=== PATIENT | male | born 1935 | race Caucasian/White ===

== ENCOUNTER → 2019-10-27 08:31 | Outpatient (CLI) | payer MEDICARE ==
[~2019-10-27 08:31] MED LIST: BAYER CHEWABLE81 MG PO; BENADRYL25 MG PO; BISOPROLOL FUMAR5 MG; FLORANEX / LACT1 TAB PO; NORCO 7.5-3251 EACH PO; NORVASC10 MG PO; OMEPRAZOLE20 M1 PO; PLAVIX75 MG PO; PRINIVIL10 MG PO; XANAX0.5 MG PO
--- NOTE | 2019-10-29 08:18 | EC ---
PATIENT:GEN PEGUERO DATE OF SERVICE: 10/27/19 SEX: M MEDICAL RECORD: [id number] DATE OF : 37 LOCATION:D[facility] AGE OF PATIENT: 84 ADMISSION DATE: 10/27/19 REFERRING PHYSICIAN: INTERPRETING PHYSICIAN: BRE RODAS MD ECHOCARDIOGRAM REPORT ECHO CHARGES 4 ECHO COMPLETE Date: 10/27/19 CLINICAL DIAGNOSIS: PRE OP ECHOCARDIOGRAPHIC MEASUREMENTS (adult normal given) AC root (d.<3.7cm) 2.5 cm LV Septum d (<1.2 cm> 0.9 cm Valve Excursion 1.2 cm LV Septum (systole) 2.0 cm Left Atria (s.<4.0cm> 3.7 cm LVPW d(<1.2cm) 1.4 cm RV (d.<2.3cm) 3.4 cm LVPW (sytole) 1.3 cm LV diastole(<5.6CM) 4.7 cm MV E-F(>70mm/sec) cm LV systole 2.6 cm LVOT Diameter 1.9 cm MV exc.(>10mm) cm Est.ejection fraction (50-75%) % DOPPLER: LVIT cm/sec A 126 cm/sec E 106 cm/sec LA cm/sec RVSP 49.2 mmHg LVOT 99 cm/sec AOP1/2T m/s Asc. Ao 266 cm/sec RVOT 92 cm/sec RA cm/sec PA 117 cm/sec AV Gradient Peak 28.2 mmHg AV Mean 17.9 mmHg AV Area 1.1 cm MV Gradient Peak 10.7 mmHg MV Mean 4.5 mmHg MV Area cm COMMENTS: Children'S Minister: [facility] Sewage Reticulation Drafting Officer: 3 Dr. Pepper TAPE# PACS Pericardial Effusion N DATE OF SERVICE: Adequate 2D, color-flow imaging, spectral Doppler and M-Mode No LVH. LV internal dimensions are normal. Wall motion is normal. EF is greater than or equal to 55%. Aortic valve is calcified with restriction of leaflet motion. Peak gradient of 28 mmHg putting this in mild range. Left atrium is normal at 3.7 cm. Mitral valve shows no prolapse. Trace MR. Right-sided chambers are grossly normal. Trace TR. ECHOCARDIOGRAM REPORT [id number] GEN PEGUERO TRANSINT:[id number] Voice Confirmation ID: [id number] DOCUMENT ID: [id number] BRE RODAS MD at 0818 CC: [id number] DICTATION DATE: 10/28/19 1245 MACHINE PACKAGER: 10/28/19 1352 DEP CLI 10/27/19 [id number] [place] [address]
[2019-10-29 12:44] VITALS: BMI 36.6
== END | disposition home or self-care (01) ==
LOC: D.ECHO 08:31
PROVIDERS: ATTEND Internal Medicine Cardiovascular Disease
DX: Z01.818 Encounter for other preprocedural examination (principal)

== ENCOUNTER 2019-10-28 10:45 | Inpatient (IN) | payer MEDICARE ==
--- NOTE | 2019-10-27 11:35 | NUR ---
PANS VS RT. ARM 151/59, LT. 137/56, P.OX 99%, P 64, T 98.5
[2019-10-27 11:40] LABS: HEMATOCRIT 34.8 % (42.0-54.0); HEMOGLOBIN 10.5 g/dL (13.5-17.5); MCH 29.2 pg (26.0-34.0); MCHC 30.2 g/dL (31.0-37.0); MCV 96.9 fL (80.0-100.0); MEAN PLATELET VOLUME 10.5 fL (7.4-10.4); RBC 3.59 10x6/uL (4.20-6.10); RDW 15.4 % (11.5-14.5); WBC 6.2 10x3/uL (4.8-10.8)
[2019-10-27 11:51] LABS: INR 1.01 (0.85-1.17); PROTIME 13.3 SECONDS (11.6-15.0)
[2019-10-27 11:52] LABS: APTT 28.9 SECONDS (22.8-39.4)
[2019-10-27 12:10] LABS: ALBUMIN 3.6 g/dL (3.4-5.0); ANION GAP 9.4 mmol/L (8-16); BILIRUBIN - TOTAL 0.3 mg/dL (0.2-1.3); CALCIUM 8.8 mg/dL (8.5-10.1); CARBON DIOXIDE 27.8 mmol/L (21.0-32.0); CREATININE - SERUM 1.6 mg/dL (0.6-1.3); POTASSIUM - SERUM 4.2 mmol/L (3.5-5.1); PROTEIN - SERUM 7.1 g/dL (6.4-8.2)
[2019-10-27 12:15] LABS: BILIRUBIN NEGATIVE (NEGATIVE); KETONE NEGATIVE (NEGATIVE); NITRITE NEGATIVE (NEGATIVE); UROBILINOGEN NORMAL (NORMAL)
[2019-10-28] VITALS (15 sets, daily range): BP systolic 102–150; BP diastolic 35–67; BMI 36.7; BMI 36.6
[~2019-10-28] VITALS: Ht 180.3 cm; Wt 114.7 kg
--- NOTE | 2019-10-28 16:00 | NUR ---
PTS TONGUE NOTIED TO DEVIATE TO RIGHT, DR ORELLANA NOTIFIED
--- NOTE | 2019-10-28 17:48 | NUR ---
A LINE READING 130S AND CUFF 110S, A LINE PEAKED, DR ORELLANA NOTIFIED AND OK TO GO BY CUFF PRESSURE
--- NOTE | 2019-10-28 19:00 | NUR ---
REPORT RECEIVED FROM OFF GOING NURSE, RECEIVED PT RESTING IN BED WATCHING TV. NO NEEDS VOICED AT THIS TIME. SHIFT ASSESSMENT COMPLETED, SEE FLOWSHEET FOR DETAILS.
[2019-10-29] VITALS (26 sets, daily range): BP systolic 127–166; BP diastolic 48–84; Ht 180.3 cm; Wt 114.7 kg
--- NOTE | 2019-10-29 07:00 | NUR ---
REPORT RECEIVED FROM OFF-GOING NURSE.
--- NOTE | 2019-10-29 07:45 | NUR ---
SHIFT ASSESSMENT COMPLETED. DENIES PAIN. STATES RIGHT NECK AND FACE ARE "NUMB" FEELING. SEE NEURO ASSESSMENT.
--- NOTE | 2019-10-29 09:30 | NUR ---
C/O RIGHT NECK PAIN 07/12. STATES "FEELING IS COMING BACK". MEDICATED WITH TRAMADOL 50MG.
--- NOTE | 2019-10-29 10:00 | NUR ---
STATES PAIN IS "GONE". AT BEDSIDE.
--- NOTE | 2019-10-29 10:45 | NUR ---
RIGHT NECK DEA DRAIN D/C'D. OCCLUSIVE DRESSING APPLIED. 10MLS IN DRAIN. RIGHT RADIAL ART LINE D/C'D. PRESSURE HELD AND OCCLUSIVE DRESSING APPLIED. WARD CATHETER REMOVED. URINAL GIVEN.
--- NOTE | 2019-10-29 14:15 | NUR ---
ASSISTED BACK TO BED WITH HOB AT 30 DEGREES. HAS BEEN OOB SINCE 0600. DENIES PAIN. CVP MONITOR D/C'D. PORT CAPPED.
--- NOTE | 2019-10-29 16:00 | OP ---
PATIENT NAME: GEN PEGUERO MEDICAL RECORD: [id number] :37 LOCATION:D.[facility] D.CV06 ADMISSION DATE:10/28/19 SURGEON: YANELY ORELLANA MD DATE OF OPERATION: 10/28/2019 SURGEON: Yanely Orellana MD PROCEDURE PERFORMED: Right carotid endarterectomy. 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 POSTOPERATIVE DIAGNOSIS: Preocclusive right internal carotid artery. ANESTHESIA: General endotracheal anesthesia. ESTIMATED BLOOD LOSS: 10 cc. SPECIMENS: Plaque. COMPLICATION: None. CONDITION: Stable. DISPOSITION: CV ICU. OPERATIVE FINDINGS: 1. Severe right internal carotid artery plaque with preocclusive lesion, the plaque feathered well distally primary closure. 2. Neurologically intact to CV ICU. OPERATIVE INDICATION: Transient right eye blindness, multiple times, but none since Plavix was started by Dr. Jaquez last week. PROCEDURE IN DETAIL: The patient brought to the operative suite. General anesthesia was obtained, the patient was prepped and draped. An oblique incision made in the right neck. The right common carotid was dissected out. Facial venous branches divided between ligatures and suture ligatures. Ansa was clipped and divided. The patient had a short neck. Retraction of the jaw was necessary. Upward retraction of the hypoglossal nerve with a vessel loop was performed. The external carotid and thyroid branch were dissected out, encircled with the vessel loop. Distal internal carotid artery was dissected out. Heparin was given. Backbleeding of the internal carotid was controlled with a bulldog clamp, inflow with a vascular clamp. Backbleeding of the external carotid thyroid branch controlled with vessel loops. EEG and cerebral oximetry remained normal for 2 minutes and arteriotomy was begun. The common carotid artery was taken out to the region of dense and irregular plaque in the proximal internal carotid into region of normal internal carotid. The plaque was divided. The common carotid eversion endarterectomy of the external carotid was performed. The plaque feathered well distally. Thorough irrigation undertaken and the loose bits of debris were removed, the artery was closed primarily. Flow was restored first to the external carotid and then to the internal carotid. Hemostasis was ensured. Thorough irrigation was undertaken. Protamine was given. The drain was placed through a separate stab wound. Surgicel was used over the wound and then the neck was closed in 3 layers. OPERATIVE REPORT [id number] GEN PEGUERO Dermabond was placed. Anesthesia reversed. The patient neurologically intact, to ICU. TRANSINT:[id number] Voice Confirmation ID: [id number] DOCUMENT ID: [id number] YANELY ORELLANA MD at 1600 CC: MARTIN LLAMAS MD [id number] DICTATION DATE: 10/28/19 1444 SUGAR CANE PLANTER: 10/29/19 0026 ADM IN [address] [place] [address]
--- NOTE | 2019-10-29 16:50 | NUR ---
UP TO CHAIR FOR SUPPER. STATES DOES NOT NEED TO URINATE AT THIS TIME. NO OUTPUT SINCE WARD REMOVED.
--- NOTE | 2019-10-29 18:00 | NUR ---
VOIDED 300ML CLEAR URINE IN URINAL. DENIES BURNING OR PAIN.
--- NOTE | 2019-10-29 19:00 | NUR ---
PT UP IN CHAIR, REQUESTS TO LAY IN BED, MINIMAL ASSISTANCE AMBULATING.
--- NOTE | 2019-10-29 20:35 | NUR ---
HS MEDS TOLERATED WELL, FRESH WATER TO BEDSIDE.
--- NOTE | 2019-10-29 23:14 | NUR ---
REYNA NOTIFIED OF PT SBP 150-160. ORDERS FOR ONE TIME 12.5 LOPRESSOR DOSE AND TO START NITRO GTT.
[2019-10-30] VITALS (95 sets, daily range): BP systolic 114–165; BP diastolic 56–94
--- NOTE | 2019-10-30 16:54 | NUR ---
0700 PT RECIEVED UP IN CHAIR ON NITRO GTT L SUBCLAVIAN CVL DRESSING CDI, R SIDE TONGUE DEVIATION WITH SOME R SIDE FACIAL NUMBNESS THAT PT STATES IS IMPROVING, CALL LIGHT WITHIN REACH, DENIES NEEDS 1000 AM MEDS TOLERATED WELL, NO DIFFICULTY SWALLOWING 1200 ATTEMPTED TO WEAN NITRO WITHOUT SUCCESS, DR CROSS NURSE COURTNI AWARE PT ATE 100% LUNCH, HERE FOR VISITATION 1645 DINNER TRAY SERVED
[2019-10-31] VITALS (51 sets, daily range): BP systolic 124–164; BP diastolic 54–84
--- NOTE | 2019-10-31 09:55 | NUR ---
Nutrition Follow-up: POD 3 R carotid endarterectomy. States that he ate 100% of breakfast this AM. Reports mouth/throat numbness is still present but improved; some difficulty chewing/swallowing. -BM; +flatus. Diet: Regular Wt: 252.4# (10/30) No new labs Meds noted: Protonix, Floranex -Pt may benefit from COATING MACHINE HELPER eval. -Monitor wt. -RD following.
[2019-10-31] MEDS ORDERED: LOPRESSOR25 MG PO (10:56)
--- NOTE | 2019-10-31 20:47 | MORECARE ---
CASE MANAGEMENT DISCHARGE SUMMARY PATIENT: GEN PEGUERO UNIT: [id number] ADM DATE: 10/28/19 AGE: 84 : 36 SEX: M ROOM/BED: [facility] AUTHOR: QUAN STEPHENSON PHYSICIAN: REFERRING PHYSICIAN: YANELY ORELLANA MD DATE OF SERVICE: 10/31/19 Discharge Plan Patient Name: GEN PEGUERO Facility: [facility]:[place] : 1935 Planned Disposition: Home Anticipated Discharge Date: Discharge Date: 10/31/2019 Expected LOS: Initial Reviewer: [email or web address] Initial Review Date: 10/28/2019 Generated: 10/31/19 9:47 pm DCPIA - Discharge Planning Initial Assessment Updated by [email or web address]: Robyn Olsen on 10/31/19 8:46 pm * Is the patient Alert and Oriented? Yes * How many steps to enter\exit or inside your home? * PCP FARHAD * Pharmacy [facility] * Preadmission Environment Home with Family * ADLs Independent * Other Equipment CANE, WALKER, W/C, BSC, SC * List name and contact numbers for known caregivers / representatives who currently or will assist patient after discharge: YUMIKO PEGUERO- - [phone] * Verbal permission to speak to the caregivers and representatives has been obtained from the patient. Yes * Community resources currently utilized None * Additional services required to return to the preadmission environment? No * Can the patient safely return to the preadmission environment? Yes * Has this patient been hospitalized within the prior 30 days at any hospital? No Coverage Notice Reviewer: [email or web address] - Robyn Olsen Notice Issued Date-Time: 10/31/2019 13:30 Notice Type: IM Discharge Notice Notice Delivered To: Patient Relationship to Patient: Self Environmental Control Administrator Name: Delivery Method: HAND - Hand Delivered Bridget Days: Prior Verbal Notification: Recipient Understood Notice: Yes Recipient Signature: Yes Med Rec Note Co-signed by Attending: Coverage Notice Comment: Patient Name: GEN PEGUERO Page [id number] at 2047 All edits/amendments must be made on the electronic document DICTATION DATE: 10/31/192046 CW OPERATOR: NOAM 10/31/192046 RPT#: [id number] DC DATE:10/31/19 STATUS: DIS IN [facility] [address] [place] [address] END OF REPORT
--- NOTE | 2019-10-31 20:55 | MORECARE ---
CASE MANAGEMENT DISCHARGE SUMMARY PATIENT: GEN PEGUERO UNIT: [id number] ADM DATE: 10/28/19 AGE: 84 : 36 SEX: M [facility] AUTHOR: SACHIN,DOC PHYSICIAN: REFERRING PHYSICIAN: YANELY ORELLANA MD DATE OF SERVICE: 10/31/19 Discharge Plan Patient Name: GEN PEGUERO Facility: [facility]:[place] : 1935 Planned Disposition: Home Anticipated Discharge Date: Discharge Date: 10/31/2019 Expected LOS: Initial Reviewer: [email or web address] Initial Review Date: 10/28/2019 Generated: 10/31/19 9:55 pm Comments DCP- Discharge Planning Updated by [email or web address]: Robyn Olsen on 10/31/19 7:[address] Patient Name: GEN PEGUERO Admission Status: Elective Accout number: [id number] Admission Date: 10-28-2019 : 1935 Admission Diagnosis:OCCLUSION AND STENOSIS OF RIGHT CAROTID ARTERY Attending: YANELY ORELLANA Current LOS: 3 Anticipated DC Date: Planned Disposition: Home Primary Insurance: MEDICARE A & B Discharge Planning Comments: CM met with patient to complete initial dc planning assessment. CM educated patient on the CM role and verbal consent given by patient to complete assessment. Patient lives at home with family. Patient is independent. At discharge patient plans to return home and feels this is a safe discharge. CM discussed availability of home health, rehab services, and medical equipment. Patient will have family to transport home. Patient denied known discharge needs at this time. CM will continue to follow and will assist as needed with dc plans/needs. D/C IMM SIGNED 10/31/19 @ 2902 Lithographic Press Operator: Robyn Olsen DCPIA - Discharge Planning Initial Assessment Updated by [email or web address]: Robyn Olsen on 10/31/19 8:46 pm * Is the patient Alert and Oriented? Yes * How many steps to enter\exit or inside your home? * PCP FARHAD * Pharmacy [facility] * Preadmission Environment Home with Family * ADLs Independent * Other Equipment CANE, WALKER, W/C, BSC, SC * List name and contact numbers for known caregivers / representatives who currently or will assist patient after discharge: YUMIKO PEGUERO- - [phone] * Verbal permission to speak to the caregivers and representatives has been obtained from the patient. Yes * Community resources currently utilized None * Additional services required to return to the preadmission environment? No * Can the patient safely return to the preadmission environment? Yes * Has this patient been hospitalized within the prior 30 days at any hospital? No Coverage Notice Reviewer: [email or web address] Juan Manuel Olsen Notice Issued Date-Time: 10/31/2019 13:30 Notice Type: IM Discharge Notice Notice Delivered To: Patient Relationship to Patient: Self Electric Power Superintendent Name: Delivery Method: HAND - Hand Delivered Bridget Days: Prior Verbal Notification: Recipient Understood Notice: Yes Recipient Signature: Yes Med Rec Note Co-signed by Attending: Coverage Notice Comment: Last DP export: 10/31/19 7:47 p Patient Name: EGN PEGUERO Page [phone] at 2054 All edits/amendments must be made on the electronic document DICTATION DATE: 10/31/192054 POWER PLANT OPERATIONS MANAGER: NOAM 10/31/192054 RPT#: [id number] DC DATE:10/31/19 STATUS: DIS IN [facility] [address] [place] [address] END OF REPORT
== END 2019-10-31 14:15 | disposition home or self-care (01) | DRG 38 ==
LOC: D.SDCHOLD 10:45 → D.CVICU 10:45
PROVIDERS: ADMIT Thoracic Surgery (Cardiothoracic Vascular Surgery); ATTEND Thoracic Surgery (Cardiothoracic Vascular Surgery)
PROC: 03CK0ZZ Extirpation of Matter from Right Internal Carotid Artery, Open Approach (ICD-10-PCS; principal; 2019-10-28 10:45)
DX: I65.21 Occlusion and stenosis of right carotid artery (principal); H53.121 Transient visual loss, right eye; R20.0 Anesthesia of skin; R47.02 Dysphasia; I10 Essential (primary) hypertension; K21.9 Gastro-esophageal reflux disease without esophagitis

== ENCOUNTER → 2019-11-05 14:34 | Outpatient (CLI) | payer MEDICARE ==
[2019-10-29 12:44] VITALS: BMI 36.6
[~2019-11-05 14:34] MED LIST changes: +LOPRESSOR25 MG PO
[2019-11-05 15:50] LABS: BILIRUBIN NEGATIVE (NEGATIVE); KETONE NEGATIVE (NEGATIVE); NITRITE NEGATIVE (NEGATIVE); UROBILINOGEN NORMAL (NORMAL)
[2019-11-05 15:54] LABS: BACTERIA FEW /hpf (NONE SEEN); RED CELLS - URINE >50 /hpf (0-5); WHITE CELLS - URINE 0-5 /hpf (0-5)
== END | disposition home or self-care (01) ==
LOC: D.LAB 14:17
PROVIDERS: ATTEND Thoracic Surgery (Cardiothoracic Vascular Surgery)
DX: N39.0 Urinary tract infection, site not specified (principal)

== ENCOUNTER → 2020-05-25 10:20 | Outpatient (CLI) | payer MEDICARE ==
[2019-10-29 12:44] VITALS: BMI 36.6
== END | disposition home or self-care (01) ==
LOC: D.HCCECHO 10:20
PROVIDERS: ATTEND Internal Medicine Cardiovascular Disease
DX: I10 Essential (primary) hypertension (principal)